=== PATIENT | female | born 2000 | race Caucasian/White ===

== ENCOUNTER → 2020-12-14 | Outpatient (CLI) | payer OTHER ==
[~2020-12-14] MED LIST: CLIN30GE2 TP; FLUO20TA11 PO; HYDR12.58 PO; NORE1PAT7 TD; OXYC-325 PO
== END ==
LOC: LAB 12:23
PROVIDERS: ATTEND Surgery
DX: Z01.812 Encounter for preprocedural laboratory examination (principal); K80.20 Calculus of gallbladder without cholecystitis without obstruction; Z20.822 Contact with and (suspected) exposure to COVID-19
CPT/HCPCS: U0003

== ENCOUNTER 2020-12-19 06:07 | Day surgery (SDC) | payer OTHER ==
[~2020-12-19] VITALS: Ht 157.5 cm; Wt 88.5 kg
[~2020-12-19 06:07] MED LIST changes: +HYDROmorphone 2 MG/ML VIAL IVP PRN; +IV RINGERS,LACTATED 1000ML 1,000 ML IV SCH; +MORPHINE SULFATE 2 MG/ML VIAL. IVP PRN; -OXYC-325 PO; +PROCHLORPERAZINE 10 MG/2 ML VIAL. IVP PRN; +fentaNYL PF VIAL 100 MCG/2 ML VIAL IVP PRN
[2020-12-19] MEDS ORDERED: LIDOCAINE 2% PF 5 ML VIAL. ONE (06:50)
[2020-12-19] MEDS ORDERED: MIDAZOLAM HCL/PF 2 MG/2 ML VIAL. ONE (06:50)
[2020-12-19] MEDS ORDERED: ROCURONIUM 50 MG/5 ML VIAL. ONE (06:51)
[2020-12-19] MEDS ORDERED: fentaNYL PF VIAL 250 MCG/5 ML VIAL ONE (06:51)
[2020-12-19] MEDS ORDERED: PROPOFOL 10 MG/ML (20ML) VIAL. IV ONE (06:51)
[2020-12-19] MEDS ORDERED: SURGICEL HEMOSTAT 4X8 EACH. ONE (07:12)
[2020-12-19] MEDS ORDERED: BUPIVACAINE-EPI 0.5% 30 ML VIAL KIT. ONE (07:12)
[2020-12-19] MEDS ORDERED: IOHEXOL 300 MG/ML 50 ML VIAL. ONE (07:12)
[2020-12-19] MEDS ORDERED: BUPIVACAINE MPF 0.5% 30 ML VIAL. ONE (07:17)
[2020-12-19] MEDS ORDERED: DEXAMETHASONE SOD PHOS 4 MG/ML VIAL ONE (07:48)
[2020-12-19] MEDS ORDERED: ONDANSETRON PF 4 MG/2 ML VIAL. ONE (07:48)
[2020-12-19] MEDS ORDERED: NEOSTIGMINE METHYLSULFATE 5 MG/5 ML SYRINGE. ONE (08:04)
[2020-12-19] MEDS ORDERED: SEVOFLURANE 61 TO 120 MINUTES. IH ONE (08:04)
[2020-12-19] MEDS ORDERED: GLYCOPYRROLATE 1 MG/5 ML VIAL. ONE (08:04)
--- NOTE | 2020-12-19 08:26 | RAD ---
EXAM: INTRAOPERATIVE CHOLANGIOGRAM. HISTORY: Gallbladder disease. Intraoperative cholangiogram with cholecystectomy. COMPARISON: None. FINDINGS: 2 fluoroscopic images are obtained intraoperatively during injection of the cystic duct rem nant after cholecystectomy. There are no filling defects to suggest retained stones. The common duct is not dilated. Fluoroscopy time 12 seconds. IMPRESSION: 1. No evidence of retained stones. Electronically signed by: Cm Hurt MD (12/19/2020 8:24 AM) [id number]
--- NOTE | 2020-12-19 08:52 | PDOC4 ---
Operative Note Operative Note Operative Note: Preoperative Diagnosis: Symptomatic cholelithiasis Postoperative Diagnosis: Same Procedure: Laparoscopic cholecystectomy with intraoperative cholangiogram Surgeons: [facility]ist: SUDEEP Barreto Anesthesia: Gen. Estimated Blood Loss: 10 mL Specimen: Gallbladder to pathology Drains: None Complications: None Indications: The patient is a 20-year-old female who was referred with symptomatic cholelithiasis. Surgical treatment was offered by means of a laparoscopic cholecystectomy. The risks of surgery were discussed which include bleeding, infection, bile duct injury, bile leak, pain, the potential for additional surgeries or procedures. The patient understands and would like to proceed. Description: The patient was taken to the operating room and laid supine on the operating table. General anesthesia was performed. The abdomen was prepped with ChloraPrep and draped in a standard surgical fashion. A small infraumbilical incision was made with a scalpel. The Veress needle was then inserted and a pneumoperitoneum was then created. A 5 mm trocar was then inserted and the laparoscope was introduced. In the upper midabdomen a 5 mm trocar was inserted and in the right upper quadrant two 2.3 mm mini lap graspers were inserted. The gallbladder was retracted cephalad. The cystic duct was dissected free from surrounding tissues. One clip was placed on the duct near the gallbladder junction. An opening was made in the duct and a cholangiocatheter placed within and secured with a clip. Using contrast dye and fluoroscopy an intraoperative cholangiogram was performed that appeared unremarkable. The clip and catheter were then withdrawn. Three clips were placed on the cystic duct and it was divided. The cystic artery was then identified, dissected free, doubly clipped and divided as well. The gallbladder was then mobilized away from the liver with cautery. The umbilical 5 millimeter trocar was exchanged for an 11 millimeter trocar. The gallbladder was then placed in an endoscopic bag and extracted at the umbilical trocar site. The fascia there was closed with an 0 Vicryl suture. All blood and irrigation fluid was suctioned and hemostasis was good. The remaining ports were removed and the pneumoperitoneum was relieved. The skin incisions were injected with half percent Marcaine with epinephrine, and all were closed using 4-0 Monocryl suture. Steri-Strips and dressings were then applied. The patient tolerated the procedure well and was sent to the recovery room in stable condition. At the end of the case all counts were correct. JACE BARTON MD Dec 19, 2020 08:52
--- NOTE | 2020-12-19 08:55 | DISCH ---
DISCHARGE INSTRUCTIONS Condition on Discharge Condition on Discharge: Stable Activity After Discharge Activity Instructions for Disc: Other, see below (no lifting over 20 lbs, no driving while taking pain meds) Diet after Discharge Diet after Discharge: Regular Wound Incision Care Wound/Incision Care: Other, see below (may remove bandaids tomorrow and shower, steristrips will fall off on their own) Follow-Up Follow up with: Dr Barton in office in 2 weeks, call for appointment [phone] JACE BATRON MD Dec 19, 2020 08:55
[2020-12-19] MEDS ORDERED: OXYC-325 PO (09:30)
[2020-12-19] MEDS ORDERED: oxyCODONE/APAP 5/325 1 TAB TABLET PO ONE ×2 (09:30)
[2020-12-19 09:50] VITALS: BP 121/71
== END 2020-12-19 10:15 | disposition home or self-care (01) ==
LOC: SURG 06:07 → EDUNIT# 07:30 → SURG 10:15
PROVIDERS: ATTEND Surgery
DX: K80.80 Other cholelithiasis without obstruction (principal); I10 Essential (primary) hypertension; K21.9 Gastro-esophageal reflux disease without esophagitis; F32.9 Major depressive disorder, single episode, unspecified; Z72.89 Other problems related to lifestyle; Z88.0 Allergy status to penicillin; Z79.899 Other long term (current) drug therapy; Z98.890 Other specified postprocedural states
CPT/HCPCS: 47563; 74300; 81025; J1100; J1956; J2250; J2405; J2704; J2710; J3010; J3490; Q9967